=== PATIENT | female | born 1975 | race Caucasian/White ===

== ENCOUNTER 2017-12-30 10:15 | Emergency (ER) | payer OTHER, BC ==
[2017-12-30] MEDS ORDERED: IBUPROFEN 600 MG TABLET (FP) PO ONE ×2 (10:29→10:37)
[2017-12-30 10:31] VITALS: BP 115/75; PULSE 77; TEMP 98.5; BMI 29.8
[2017-12-30] MEDS ORDERED: CYCLOBENZAPRINE HCL 10 MG TABLET (FP) ONE (10:37)
[2017-12-30 10:50] LABS: HCG,QUALITATIVE URINE Negative
[2017-12-30 10:52] LABS: URINE APPEARANCE Clear; URINE BILIRUBIN Negative (NEGATIVE); URINE COLOR Yellow; URINE GLUCOSE (UA) Negative (NEGATIVE); URINE KETONE Negative (NEGATIVE); URINE LEUK ESTERASE Negative (NEGATIVE); URINE NITRITE Negative (NEGATIVE); URINE PROTEIN Negative (NEGATIVE); URINE UROBILINOGEN 0.2 (0.2-1.0)
--- NOTE | 2017-12-30 11:03 | PDOC ---
History of Present Illness - General Chief Complaint: Back Pain Stated Complaint: back pain Time Seen by Provider: 12/30/17 10:20 History Source: Patient Exam Limitations: No Limitations - History of Present Illness Initial Comments: 12/30/17 10:37 This was is a 42-year-old female who is otherwise healthy who presents emergency department with a complaint of back pain. Patient states her symptoms began approximately 4-5 weeks ago. At that time back pain was intermittent. She presents emergency department today because her back pain has worsened and is now constant. Patient reports her pain is sharp 8/10. She describes it as a 5/10, no radiation into the buttocks or leg. She denies any preceding trauma, heavy lifting, falls. She has a history of some sort of stones (unsure if kidney or or gallbladder). She denies actual flank pain, hematuria, dysuria. She denies fevers or chills. She denies a history of IV drug abuse. She denies a history of cancer. Patient states her pain is much improved while seated. If she sits forward or is walking/is on her feet for long periods of time the pain worsens Age: Denies PSH: Denies Medication: Biotin, vitamin D ALLERGIES: Denies Social: Denies IV drug use, cigarettes, alcohol abuse. Family history: Noncontributory ROS: GENERAL/CONSTITUTIONAL: No: fever, chills, weakness, loss of appetite. HEAD, EYES, EARS, NOSE AND THROAT: No: change in vision, ear pain, discharge, sore throat, throat swelling. CARDIOVASCULAR: No: chest pain, lightheadedness, palpitations, syncope RESPIRATORY: No: cough, shortness of breath, wheezing, hemoptysis, stridor. GASTROINTESTINAL: No: nausea, vomiting, diarrhea, abdominal cramping, rectal bleeding, constipation. GENITOURINARY: No: dysuria, hematuria, frequency, urgency, flank pain. MUSCULOSKELETAL: Yes: back pain No: neck pain, joint pain, muscle swelling or pain SKIN: No: lesions, pallor, rash or easy bruising. NEUROLOGIC: No: headache, vertigo, paresthesias, weakness ENDOCRINE: No: unexplained weight gain or loss HEMATOLOGIC/LYMPHATIC: No: anemia, easy bleeding, swelling nodes. PE: General: A&O x3 appearing in [No acute, mild, moderate, severe, anxiety induced ] Skin: [w/o signs of trauma, ecchymosis at pain site] HEENT: PERRLA Neck: Supple, firm, FROM, NT Respiratory: CTA w/o W/R/R B/L Cardiac: RRR, w/o M/R/G GI: NT/ND, NL bowel sounds Back is symmetrical, straight. Pt is/is not able to bend forward, this elicits pain. No tenderness appreciated to vertebrae. No step-offs. No deformities appreciated. There is no CVA tenderness appreciated bilaterally. The patient without any paravertebral muscle tenderness. Musculoskeletal: The patient has full range of motion of lower extremities bilaterally. Straight leg raise is intact and equal bilaterally. Dorsiflexion and plantar flexion are intact of the bilateral lower extremities bilaterally. Sensation is intact throughout the distal feet. Neurologic: The patient is awake, alert, oriented x3. Gross motor and sensory exam is found to be intact. Muscle strength is 5/5 lower extremities bilaterally (L4,L5, S1). DTRs, patellar, and Achilles are 1 to 2+ equal bilaterally throughout. Sensation intact throughout (L4, L5, S1) Motor: L1- S1 intact Sensation: L1- S1 intact Past History - Past Medical History Allergies/Adverse Reactions: Allergies Allergy/AdvReac Type Severity Reaction Status Date / Time No Known Allergies Allergy Verified 12/30/17 10:16 Home Medications: Ambulatory Orders Lidocaine 5% Patch [Lidoderm Patch -] 1 patch TP DAILY PRN #30 patch 12/30/17 Methocarbamol [Robaxin -] 500 mg PO TID PRN #30 tablet 12/30/17 Cardiac Disorders: Yes (MURMUR) COPD: No Kidney Stones: Yes - Surgical History Abdominal Surgery: Yes (umbulical hernia repair) - Immunization History Immunization Up to Date: Yes - Suicide/Smoking/Psychosocial Hx Smoking Status: No Smoking History: Never smoked Number of Cigarettes Smoked Daily: 0 Hx Alcohol Use: No Drug/Substance Use Hx: No Substance Use Type: None *Physical Exam - Vital Signs Last Vital Signs Temp Pulse Resp BP Pulse Ox 98.5 F 77 16 115/75 100 12/30/17 10:16 12/30/17 10:16 12/30/17 10:16 12/30/17 10:16 12/30/17 10:16 ED Treatment Course - RADIOLOGY Radiology Studies Ordered: Category Date Time Status SPIRAL- RENAL-STONE CT [CT] Stat CT Scan 12/30/17 10:29 Ordered Medical Decision Making - Medical Decision Making 12/30/17 11:03 Laboratory Tests 12/30/17 10:35 Urine Blood Negative Urine Nitrite Negative Urine HCG, Qual Negative Spiral CT performed Pt given Motrin and flexeril 12/30/17 11:45 CT negative Will discharge to home Follow up with PMD or Dr leos Return to the ER for any other concerns or complaints Clinical impression: lumbar back pain, initial presentation *DC/Admit/Observation/Transfer Diagnosis at time of Disposition: Lumbar back sprain Qualifiers: Encounter type: initial encounter Qualified Code(s): S33.5XXA - Sprain of ligaments of lumbar spine, initial encounter - Discharge Dispostion Disposition: HOME Condition at time of disposition: Stable Decision to Admit order: No - Prescriptions Prescriptions: Lidocaine 5% Patch [Lidoderm Patch -] 1 patch TP DAILY PRN #30 patch PRN Reason: Pain Methocarbamol [Robaxin -] 500 mg PO TID PRN #30 tablet PRN Reason: Lower Back Pain - Referrals Referrals: Jose Gonzalez MD, FA[facility] [Staff Physician] - - Patient Instructions Printed Discharge Instructions: DI for Low Back Pain, DI for Back Pain With Sciatica Additional Instructions: Ms Jackson Thank you for coming in to the ER Today you were seen for a low back strain. Your CT was negative. you can take the muscle relaxer robaxin as needed. You may take motrin also as needed Apply lidoderm patch You can also apply warm compresses as is comfortable for you Avoid heavy lifting or bending forward for the next 1-2 weeks. Follow up with your primary care provider within 24 to 48 hours. Please go to the emergency room if any new or worsening symptoms develop. Stay alert for any new symptoms - fevers, chills, weakness, numbness If you notice this, come back and see us in the ER - Post Discharge Activity Forms/Work/School Notes: Back to Work
[2017-12-31] MEDS ORDERED: CYCLOBENZAPRINE HCL 5 MG TABLET PO ONE (10:29)
== END 2017-12-30 12:17 | disposition home or self-care (01) ==
LOC: FER 10:15
DX: S33.5XXA Sprain of ligaments of lumbar spine, initial encounter (principal); X58.XXXA Exposure to other specified factors, initial encounter; Y93.9 Activity, unspecified; Y92.9 Unspecified place or not applicable
CPT/HCPCS: 74176; 81003; 84703; 99282-25

== ENCOUNTER 2018-12-24 21:00 | Emergency (ER) | payer OTHER, BC ==
[2018-12-24 21:09] VITALS: BP 145/79; PULSE 88; TEMP 98.2; BMI 31.4
[2018-12-24] MEDS ORDERED: ALBUTEROL SO4 2.5/IPRATROPIUM 0.5 INH SOL 3 ML VIAL.NEB. NEB ONE ×5 (21:19→22:10)
[2018-12-24] MEDS ORDERED: ACETAMINOPHEN 325 MG TABLET (FP) PO ONE (21:29)
--- NOTE | 2018-12-24 21:33 | PDOC ---
Documentation entered by Aniya Herbert SCRIBE, acting as scribe for Cheryl Bermudez MD. Cheryl Bermudez MD: This documentation has been prepared by the scribe, Aniya Herbert SCRIBE, under my direction and personally reviewed by me in its entirety. I confirm that the documentation accurately reflects all work, treatment, procedures, and medical decision making performed by me. History of Present Illness - General Chief Complaint: Respiratory Stated Complaint: COUGH & COLD SX Time Seen by Provider: 12/24/18 21:04 History Source: Patient Exam Limitations: No Limitations - History of Present Illness Initial Comments: 12/24/18 21:52 Ms. Jackson is a 43-year-old female who presents to the emergency department with 6 days of cough, congestion, fever, bilateral ear pain, and anterior chest pain/ tightness. +productive cough noted to be initially clear, now more yellow. The patient states the chest pain is presents while coughing episodes, associated with difficulty taking a deep breath. The patient reports since Tuesday shes been having the symptoms, unrelieved with Mucinex, Robitussin, Proair (2 puffs) and Z-pack (which she is on day 05/02). A/w generalized headache, congestion and sinus congestion. she is tolerating PO and fluid intake. last used ibuprofen 3 hours [employer], has been using prn for chest discomfort with some relief. Denies fevers/chills, palpitations, dizziness, weakness, N, V, D, abdominal pain , bladder and bowel problems, leg swelling, rash. No recent travel. No new changes in medications. No suspicious food intake. Denies eye pain or discharge. +sick contacts - children with URI sx, have been improving. 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 Employed as a [employer] pharmacist. No tobacco, ETOH or drug use. Meds: as documented in EMR Family history: noncontributory PMD: Dr. Schmidt Review of System Constitutional: No fever. No chills. No weakness HEENT: no headache or dizziness. +congestion. +bilateral ear pain. No visual/ hearing disturbances. CVS: +chest pain. No syncope. Resp: +productive cough. +sob Gastrointestinal: no abdominal pain, nausea or vomiting. Genitourinary: no urinary sx, hematuria. MUSCULOSKELETAL: No joint pain and swelling. No neck or back pain. no myalgias. SKIN: no redness or skin changes, no discharge, no rash. No wounds. Hematologic: no easy bruising/bleeding. NEUROLOGIC: +headache. No dizziness, LOC or altered mental status. No weakness, numbness or tingling. Psych: no anxiety or depression Allergic/Immunologic: no allergies All other systems reviewed and negative, or as documented in HPI. Physical Exam General: Well appearing, awake and alert, NAD. HEENT: NCAT, PERRL, EOMI, clear conjunctiva, anicteric, moist mucous membranes , oropharynx clear. Airway patent, normal phonation. Uvula midline. no tonsillar hypertrophy. No sinus tenderness, TM clear, no pinna tenderness to manipulation. Neck: neck supple, FROM Resp: CTAB, normal and even respirations, no respiratory distress CVS: RRR, no murmurs, 2+ peripheral pulses throughout, no peripheral edema Abdomen: soft, NTND, no rebound or guarding. No CVAT. Back: nontender, normal inspection and ROM MSK: no edema, BEY x4, ROM intact. No clubbing or cyanosis. normal bulk and tone. Extremities: no calf tenderness Neuro: alert, oriented appropriately; no focal neurologic deficits Psych: Calm and cooperative Skin: warm and well perfused, cap refill <2 sec, normal color 12/24/18 22:06 12/24/18 22:10 12/24/18 22:11 Past History - Past Medical History Allergies/Adverse Reactions: Allergies Allergy/AdvReac Type Severity Reaction Status Date / Time No Known Allergies Allergy Verified 12/24/18 21:04 Home Medications: Ambulatory Orders Albuterol 0.083% Nebulizer Nikki [Ventolin 0.083% Nebulizer Soln -] 1 neb NEB Q6H PRN #50 vial 12/24/18 Azithromycin [Zithromax -] 250 mg PO ASDIR 12/24/18 Benzonatate [Tessalon Pearls -] 100 mg PO TID PRN #15 capsule 12/24/18 Cardiac Disorders: Yes (MURMUR) COPD: No Kidney Stones: Yes - Surgical History Abdominal Surgery: Yes (umbulical hernia repair) - Immunization History Immunization Up to Date: Yes - Psycho Social/Smoking Cessation Hx Smoking Status: No Smoking History: Never smoked Number of Cigarettes Smoked Daily: 0 Hx Alcohol Use: No Drug/Substance Use Hx: No Substance Use Type: None *Physical Exam - Vital Signs Last Vital Signs Temp Pulse Resp BP Pulse Ox 98.2 F 88 16 145/79 99 12/24/18 21:00 12/24/18 21:00 12/24/18 21:00 12/24/18 21:00 12/24/18 21:00 ED Treatment Course - RADIOLOGY Radiology Studies Ordered: Category Date Time Status CHEST PA & LAT [RAD] Stat Radiology 12/24/18 21:29 Ordered Chest X-Ray Result: No Infiltrates Radiograph Interpretation: 12/24/18 21:33 Interpreted by ED Physician: CXR (2 view): no acute abnormality: no infiltrates , bones appear intact and structures normal alignment, cardiac silhouette within normal limits. no free air under diaphragm, no pneumothorax. Medical Decision Making - Medical Decision Making 12/24/18 22:10 Vital Signs Temp Pulse Resp BP Pulse Ox 98.2 F 88 16 145/79 99 12/24/18 21:00 12/24/18 21:00 12/24/18 21:00 12/24/18 21:00 12/24/18 21:00 VS reviewed, wnl. nontoxic appearing, maintaing airway. no respiratory distress. speaking clear sentences. normal sats, afebrile given duoneb to break up cough, feels improved after duonebs tylenol for analgesia, last dose of motrin 3 hours [employer] cxr clear, no pna, no ptx. normal cardiac silhouette likely viral bronchitis/URI will rx anti-tussives prn, analgesia regimen and albuterol nebs prn 4-6 hr supportive care, rest hydration advised DC stable condition, return precautions. pt made aware of impression and plan, agreeable. 12/24/18 22:11 12/24/18 22:12 Discharge - Discharge Information Problems reviewed: Yes Clinical Impression/Diagnosis: URI (upper respiratory infection) Condition: Stable Disposition: HOME - Admission No - Additional Discharge Information Prescriptions: Albuterol 0.083% Nebulizer Nikki [Ventolin 0.083% Nebulizer Soln -] 1 neb NEB Q6H PRN #50 vial PRN Reason: Cough Benzonatate [Tessalon Pearls -] 100 mg PO TID PRN #15 capsule PRN Reason: Cough - Follow up/Referral Referrals: Lily Schmidt MD [Primary Care Provider] - - Patient Discharge Instructions Patient Printed Discharge Instructions: DI for Cough -- Adult, DI for Acute Bronchitis Additional Instructions: 1) Please follow-up with your primary care doctor in the next 1-2 days. Please call tomorrow for for any urgent issues. 2) You were given a copy of the tests performed today. Please bring the results with you and review them with your primary care doctor. Your laboratory / imaging results were normal, including your chest x ray. 3) If you have any worsening of symptoms or any other concerns please return to the ED immediately. Return if worsening symptoms including fevers, headache, vomiting, visual or hearing disturbances, abdominal pain, chest pain, shortness of breath, syncope, dehydration, inability to take things by mouth/vomiting, altered mental status, or worsening concerning symptoms. 4) Please continue taking your home medications as directed. your medications on discharge include tessalon perles as needed for the cough 2-3X per day, as well as the albuterol nebulizer treatments. do not drink alcohol with your medications. you can also take tylenol/motrin as needed for the pain Stay well hydrated and rest adequately. Make an appointment. If you cannot follow-up with your primary care doctor please return to the ED salt water gargles, 1-2 spoonful of honey and warm lemon tea is appropriate as well for soothing qualities for sore throat/cough. minimize spread of infection given contagious nature, and cover your mouth and wash your hands adequately with soap and water. Stay well hydrated and rest. Cool air - walk around outdoors in the evening. May also try hot shower steam. This can alleviate the congestion and cough. May use the albuterol inhaler every 4-6 hours as needed for cough and breathing to clear up your airways. Return precautions include respiratory distress, difficulty breathing, cyanosis , chest pain, lethargy, confusion, dehydration, high fevers or pain. - Post Discharge Activity Work/Back to School Note: Back to Work
[2018-12-24] MEDS ORDERED: ACETAMINOPHEN 325 MG TABLET (FP) ONE (21:39)
== END 2018-12-24 22:40 | disposition home or self-care (01) ==
LOC: FER 21:00
PROC: 3E0F7GC Introduction of Other Therapeutic Substance into Respiratory Tract, Via Natural or Artificial Opening (ICD-10-PCS; principal; 2018-12-24)
DX: J06.9 Acute upper respiratory infection, unspecified (principal)
CPT/HCPCS: 71046-TC-FY; 99282-25